=== PATIENT | male | born 1955 | race Caucasian/White ===

== ENCOUNTER 2017-12-16 02:29 | Outpatient (CLI) | payer MEDICARE, SELFPAY ==
[2017-12-16 15:02] LABS: Hemoglobin A1C 6.8 % (4.5-6.2)
== END 2017-12-16 02:49 ==
PROVIDERS: PCP Family Medicine; Visit Provider Family Medicine
DX: E11.9 Type 2 diabetes mellitus without complications (principal)
CPT/HCPCS: 36415; 83036

== ENCOUNTER 2018-03-29 01:49 | Outpatient (CLI) | payer MEDICARE, SELFPAY ==
[2018-03-29 08:27] LABS: Hemoglobin A1C 8.4 % (4.5-6.2)
[2018-03-29 09:21] LABS: ALT 33 U/L (12-78); AST 15 U/L (15-37); Albumin 3.9 g/dL (3.4-5.0); Alkaline Phosphatase 69 U/L (46-116); Anion Gap 10.7 mmol/L (3-11); BUN 17 mg/dL (7-18); Bilirubin, Total 0.5 mg/dL (0.2-1.0); CO2 29.3 mmol/L (21.0-32.0); CREATININE 1.01 mg/dL (0.70-1.30); Calcium 9.3 mg/dL (8.5-10.1); Chloride 99 mmol/L (98-107); Cholesterol 124 mg/dL (50-200); Glucose 249 mg/dL (70-100); HDL Cholesterol 37 mg/dL (40-60); LDL CHOLESTEROL 62 mg/dL (<100); Potassium 4.9 mmol/L (3.5-5.1); Sodium 139 mmol/L (136-145); Total Protein 7.4 g/dL (6.4-8.2); Triglyceride 195 mg/dL (30-150)
== END 2018-03-29 02:09 ==
PROVIDERS: PCP Family Medicine; Visit Provider Family Medicine
DX: E11.9 Type 2 diabetes mellitus without complications (principal)
CPT/HCPCS: 36415; 80053; 80061; 83721; 83036

== ENCOUNTER 2018-08-04 02:09 | Outpatient (CLI) | payer MEDICARE, SELFPAY ==
[2018-08-04 08:22] LABS: Hemoglobin A1C 7.8 % (4.5-6.2)
== END 2018-08-04 02:29 ==
PROVIDERS: PCP Family Medicine; Visit Provider Family Medicine
DX: E11.9 Type 2 diabetes mellitus without complications (principal)
CPT/HCPCS: 36415; 83036

== ENCOUNTER 2019-04-19 12:19 | Outpatient (CLI) | payer MEDICARE, SELFPAY ==
--- NOTE | 2019-04-19 | DI.RAD_ITS ---
EXAM: XR THORACIC SPINE COMPLETE INDICATION: upper back pain STRAIN OF RT TRAPEZIUS [id number] COMPARISON: LUMBAR SPINE COMPLETE from 08/10/2014 TECHNIQUE: 2D digital imaging was performed. FINDINGS: There is a stable moderate compression fracture of T 11. There is also stable mild compression of T1 2. Degenerative disc osteophytes are seen throughout, greatest at the lower thoracic levels. There is a mild scoliosis. Heart size is normal. Visualized portions of the lungs appear clear. IMPRESSION: Old lower thoracic compression fractures. Degenerative disc changes and mild scoliosis.
== END 2019-04-19 12:39 ==
PROVIDERS: PCP Family Medicine; Visit Provider Family Medicine
DX: M54.6 Pain in thoracic spine (principal); M51.34 Other intervertebral disc degeneration, thoracic region
CPT/HCPCS: 72072

== ENCOUNTER 2019-05-02 02:11 | Outpatient (CLI) | payer MEDICARE, SELFPAY ==
[2019-05-02 07:54] LABS: Hemoglobin A1C 8.8 % (3.8-5.6)
== END 2019-05-02 02:31 ==
PROVIDERS: PCP Family Medicine; Visit Provider Family Medicine
DX: E11.9 Type 2 diabetes mellitus without complications (principal)
CPT/HCPCS: 36415; 83036

== ENCOUNTER 2019-05-10 07:26 | Outpatient (CLI) | payer MEDICARE, SELFPAY ==
--- NOTE | 2019-05-10 | DI.RAD_ITS ---
EXAM: XR RIBS RT W PA LAT CHEST INDICATION: FELL 6 WKS AGO ON RT POSTERIOR RIBS, DORSALGIA, UPPER BACK PAIN, M54.9. COMPARISON: LUMBAR SPINE COMPLETE from 08/10/2014 TECHNIQUE: 2D digital imaging was performed. FINDINGS: The heart size and pulmonary vasculature are within normal limits. The lungs are clear. No pneumoth orax or pleural effusion is seen. No acute or healing fracture or dislocation is identified. There are degenerative changes in the spine. Note is again made of an ovoid calcification in the right abd omen. This is unchanged dating back to 08/10/2014. This may represent a gallstone. IMPRESSION: No acute or healing rib fracture. No acute pulmonary process.
== END 2019-05-10 07:46 ==
PROVIDERS: PCP Family Medicine; Visit Provider Family Medicine
DX: M54.9 Dorsalgia, unspecified (principal); R07.81 Pleurodynia
CPT/HCPCS: 71046; 71100

== ENCOUNTER 2019-08-25 03:03 | Outpatient (CLI) | payer MEDICARE, SELFPAY ==
[2019-08-25 09:30] LABS: ALT 30 U/L (16-63); AST 11 U/L (15-37); Albumin 3.8 g/dL (3.4-5.0); Alkaline Phosphatase 73 U/L (46-116); Anion Gap 7.4 mmol/L (3-11); BUN 14 mg/dL (7-18); Bilirubin, Total 0.3 mg/dL (0.2-1.0); CO2 27.6 mmol/L (21.0-32.0); CREATININE 0.97 mg/dL (0.70-1.30); Calcium 9.1 mg/dL (8.5-10.1); Calculated LDL 58 mg/dL (<100); Chloride 106 mmol/L (98-107); Cholesterol 125 mg/dL (<200); Glucose 277 mg/dL (74-106); HDL Cholesterol 36 mg/dL (40-60); Potassium 4.4 mmol/L (3.5-5.1); Sodium 141 mmol/L (136-145); Triglyceride 157 mg/dL (<150)
[2019-08-28 11:06] LABS: PSA, Diagnostic 0.3 ng/mL (0.0-4.5)
== END 2019-08-25 03:23 ==
PROVIDERS: PCP Family Medicine; Visit Provider Family Medicine
DX: E78.5 Hyperlipidemia, unspecified (principal); E11.9 Type 2 diabetes mellitus without complications; R35.1 Nocturia; N40.1 Benign prostatic hyperplasia with lower urinary tract symptoms
CPT/HCPCS: 36415; 80053; 80061; 83036; 84153

== ENCOUNTER 2020-05-07 03:19 | Outpatient (CLI) | payer MEDICARE, SELFPAY ==
[2020-05-07 07:55] LABS: Hemoglobin A1C 10.8 % (<5.7)
== END 2020-05-07 03:20 | disposition home or self-care (01) ==
LOC: LBO 03:19
PROVIDERS: PCP Family Medicine; Visit Provider Family Medicine
DX: E11.9 Type 2 diabetes mellitus without complications (principal)
CPT/HCPCS: 36415; 83036

== ENCOUNTER → 2020-05-21 02:02 | Outpatient (CLI) | payer MEDICARE, SELFPAY ==
--- NOTE | 2020-05-21 07:30 | DI.CTLCSR_ITS ---
EXAM: CT CHEST LUNG CANCER SCREEN CLINICAL HISTORY: Screening for lung cancer,FORMER SMOKER, Z87.891 TECHNIQUE: CT examination of the chest was performed utilizing low-dose lung cancer screening protoc ol. COMPARISON: No exams were available for comparison FINDINGS: Images obtained through the upper abdomen show unremarkable appearance of visualized portions of the liver and spleen. Visualized portions pancreas, adrenals, and kidneys appear intact. Note is made of coronary artery calcification. There is no mediastinal or hilar adenopathy. Mediastinal vascular structures appear intact by noncon trast criteria. Tracheobronchial tree appears intact. No pleural effusion or pleural-based mass. The lungs are clear with no significant intrapulmonary nodule identified. IMPRESSION: Negative LDCT of the chest. Lung RADS Cat 1 - Negative: No nodules and definitely benign nodules Continue annual screening with LDCTin 12 months. RADIATION DOSE DELIVERED: LINK-TO-SR Total DLP 72.02mGy.cm Total DLP
== END ==
PROVIDERS: PCP Family Medicine; Visit Provider Family Medicine
DX: Z87.891 Personal history of nicotine dependence (principal)
CPT/HCPCS: 71271

== ENCOUNTER 2020-08-09 03:17 | Outpatient (CLI) | payer MEDICARE, SELFPAY ==
[2020-08-09 12:05] LABS: Hemoglobin A1C 8.2 % (<5.7)
[2020-08-09 13:37] LABS: COMMENT (LAB VIEW ONLY) 93.61 mg/dL; Microalb ug/mg Crea 46.9 ug/mg Cr
[2020-08-12 10:22] LABS: PSA, Diagnostic 0.3 ng/mL (0.0-4.5)
== END 2020-08-09 03:18 | disposition home or self-care (01) ==
LOC: LBO 03:18
PROVIDERS: PCP Family Medicine; Visit Provider Family Medicine
DX: E11.9 Type 2 diabetes mellitus without complications (principal); N40.0 Benign prostatic hyperplasia without lower urinary tract symptoms
CPT/HCPCS: 36415; 82043; 82570; 83036; 84153

== ENCOUNTER 2021-01-22 01:39 | Outpatient (CLI) | payer MEDICARE, SELFPAY ==
[2021-01-22 13:24] LABS: Hemoglobin A1C 7.8 % (<5.7)
== END 2021-01-22 01:40 | disposition home or self-care (01) ==
LOC: LOS 01:40
PROVIDERS: PCP Family Medicine; Visit Provider Family Medicine
DX: E11.9 Type 2 diabetes mellitus without complications (principal)
CPT/HCPCS: 36415; 83036

== ENCOUNTER 2021-06-18 03:00 | Outpatient (CLI) | payer MEDICARE, SELFPAY ==
[2021-06-18 10:33] LABS: ALT 25 U/L (16-63); AST 12 U/L (15-37); Albumin 4.4 g/dL (3.4-5.0); Alkaline Phosphatase 83 U/L (46-116); Anion Gap 8.8 mmol/L (3-11); BUN 11 mg/dL (7-18); Bilirubin, Total 0.7 mg/dL (0.2-1.0); CO2 28.2 mmol/L (21.0-32.0); CREATININE 0.9 mg/dL (0.70-1.30); Calcium 9.2 mg/dL (8.5-10.1); Chloride 103 mmol/L (98-107); Glucose 157 mg/dL (74-106); Potassium 4.3 mmol/L (3.5-5.1); Sodium 140 mmol/L (136-145); Total Protein 7.7 g/dL (6.4-8.2)
[2021-06-19 14:56] LABS: Calculated LDL 66 mg/dL (<100); Cholesterol 129 mg/dL (<200); HDL Cholesterol 42 mg/dL (40-60); Triglyceride 107 mg/dL (<150)
== END 2021-06-18 03:01 | disposition home or self-care (01) ==
LOC: LBO 03:00
PROVIDERS: PCP Family Medicine; Visit Provider Family Medicine
DX: E11.9 Type 2 diabetes mellitus without complications (principal); E78.5 Hyperlipidemia, unspecified
CPT/HCPCS: 36415; 80053; 80061; 83036

== ENCOUNTER 2021-06-20 16:01 | Outpatient (CLI) | payer MEDICARE, SELFPAY ==
--- NOTE | 2021-06-20 16:00 | RT.EKG_ITS ---
APPROVED REPORT Exam: Resting ECG Reason for Exam: Welcome to Medicare Patient Location: O HR:62 bpm ECG Measurements Heart Rate 62 AXIS AL 156 P 83 QRSd 95 QRS -9 QT 404 T 57 QTc 396 Conclusion Sinus bradycardia...rate< 60 Atrial premature complexes...SV complexes w/ short R-R intvls
== END 2021-06-20 16:02 | disposition home or self-care (01) ==
LOC: DI.CM 16:02
PROVIDERS: PCP Family Medicine; Visit Provider Family Medicine
DX: Z00.00 Encounter for general adult medical examination without abnormal findings (principal); R00.1 Bradycardia, unspecified; I49.1 Atrial premature depolarization
CPT/HCPCS: 93010

== ENCOUNTER → 2021-07-21 01:03 | Outpatient (CLI) | payer MEDICARE, SELFPAY | PROVIDERS: PCP Family Medicine; Visit Provider Family Medicine ==

== ENCOUNTER 2021-12-01 03:43 | Outpatient (CLI) | payer MEDICARE, SELFPAY ==
[2021-12-01 12:30] LABS: Hemoglobin A1C 7.3 % (<5.7)
[2021-12-01 22:06] LABS: Albumin ug/mg Crea 21 (<30); Albumin, Ur 1.3 mg/dL (See Note); Creatinine, Ur 63.1 mg/dL (See Note)
== END 2021-12-01 03:44 | disposition home or self-care (01) ==
LOC: LOS 03:43
PROVIDERS: PCP Family Medicine; Visit Provider Family Medicine
DX: E11.9 Type 2 diabetes mellitus without complications (principal)
CPT/HCPCS: 82043; 82570; 83036

== ENCOUNTER 2022-04-17 01:04 | Outpatient (CLI) | payer MEDICARE, SELFPAY ==
[2022-04-17 12:30] LABS: Hemoglobin A1C 7.3 % (<5.7)
== END 2022-04-17 01:05 | disposition home or self-care (01) ==
LOC: LOS 01:04
PROVIDERS: PCP Family Medicine; Visit Provider Family Medicine
DX: E11.9 Type 2 diabetes mellitus without complications (principal)
CPT/HCPCS: 36415; 83036

== ENCOUNTER 2022-04-21 11:14 | Outpatient (REF) | payer MEDICARE, SELFPAY ==
[2022-04-21 14:13] LABS: COMMENT (LAB VIEW ONLY) 55.04 mg/dL; Microalb ug/mg Crea 1048.9 ug/mg Cr
== END 2022-04-21 11:15 | disposition home or self-care (01) ==
LOC: LBN 11:14
PROVIDERS: PCP Family Medicine; Visit Provider Family Medicine
DX: E11.9 Type 2 diabetes mellitus without complications (principal)
CPT/HCPCS: 82043; 82570

== ENCOUNTER 2022-07-22 01:58 | Outpatient (CLI) | payer OTHER, SELFPAY ==
--- NOTE | 2022-07-22 07:45 | DI.RAD_ITS ---
Exam(s) XR LUMBAR SPINE COMPLETE EXAM: XR LUMBAR SPINE COMPLETE CLINICAL HISTORY: low back pain m54.5. TECHNIQUE: 2D digital imaging was performed of the lumbar spine. Five images were obtained. AP, la teral, right oblique, left oblique and L5-S1 spot views were obtained. COMPARISON: CR LUMBAR SPINE COMPLETE from 08/10/[address] CHEST LUNG CANCER SCREEN from 05/21/2020 FINDINGS: BONES: No fracture or destructive lesion. There are endplate osteophytes throughout the lumbar spine. Degenerative changes of the facets are seen at L5-S1. DISKS: There is disc space narrowing at T12-L1 and L1-L2. ALIGNMENT: Lumbar spinal alignment is within normal limits. No spondylolysis or spondylolisthesis. SOFT TISSUE: There is again seen a rounded calcification in the right upper quadrant which may repres ent a gallstone. Atherosclerosis is present. IMPRESSION: Moderate degenerative changes in the lumbar spine. DATA REPOSITORY: RADIATION DOSE DELIVERED:
--- NOTE | 2022-07-22 07:45 | DI.RAD_ITS ---
Exam(s) XR HIP LT COMPLETE AP PELVIS EXAM: XR HIP LT COMPLETE AP PELVIS CLINICAL HISTORY: left hip/leg pain,m25.552. TECHNIQUE: 2D digital imaging was performed of the left hip. Two views were obtained. AP pelvis an d lateral left hip views were obtained. COMPARISON: No exams were available for comparison FINDINGS: BONES: No acute fracture is present. No bony destructive lesion is seen. JOINTS: No dislocation present. The hip joints are well maintained. The sacroiliac joints and symphy sis pubis are unremarkable. SOFT TISSUE: Normal. IMPRESSION: Unremarkable radiographs of the left hip. DATA REPOSITORY: RADIATION DOSE DELIVERED:
== END 2022-07-22 02:18 ==
LOC: DI 01:58
PROVIDERS: PCP Family Medicine; Visit Provider Family Medicine
DX: M25.552 Pain in left hip (principal); M54.50 Low back pain, unspecified
CPT/HCPCS: 72110; 73502

== ENCOUNTER 2022-08-31 13:08 | Emergency (ER) | payer OTHER, SELFPAY ==
--- NOTE | 2022-08-31 13:15 | DI.RAD_ITS ---
Exam(s) XR ANKLE LT COMPLETE EXAM: XR ANKLE LT COMPLETE CLINICAL HISTORY: Left ankle pain. TECHNIQUE: 2D digital imaging was performed. COMPARISON: No exams were available for comparison FINDINGS: Four views No evidence of acute fracture or widening of mortise. Talar dome unremarkable. Bone density normal. No osseous lesions. No osseous tarsal coalition. Tiny inferior calcaneal spur. IMPRESSION: No acute osseous findings in the ankle. DATA REPOSITORY: RADIATION DOSE DELIVERED:
--- NOTE | 2022-08-31 13:19 | ED.GENADUL_ITS ---
Discharge Plan Disposition Patient Disposition: Home Discharge Details Clinical Impression: Acute left ankle pain Primary Care Provider: Venice Melvin ED Provider: Maged Khan Home Meds and New Rx's Prescriptions: Continued multivitamin 1 EACH tablet 1 ea PO DAILY aspirin [Aspirin Low-Strength] 81 MG tablet,chewable 1 tab PO DAILY vitamin B complex 1 EACH tablet 1 ea PO DAILY xxtfklar-fbei-qjnbgr-hyalur ac 1 EACH capsule 1 ea PO DAILY omega 2-emj-rxi-fish oil 1 EACH capsule,delayed release(DR/EC) 2 ea PO DAILY naproxen sodium [Aleve] 220 MG tablet 2 - 3 tab PO DAILY PRN (DME) blood-glucose meter [OneTouch Verio Meter] 1 EACH misc Miscellaneous DAILY Qty: 90 Rx Instructions: Lancets - E11.9 (DME) blood-glucose meter [OneTouch Verio IQ Meter] 1 EACH kit 1 ea Miscellaneous DAILY Qty: 1 0RF Rx Instructions: E11.9 tramadol 50 mg tablet 50 mg PO BID PRN (Reason: pain) Qty: 14 3RF atenolol [Tenormin] 50 mg tablet 50 mg PO DAILY Qty: 90 4RF atorvastatin 40 mg tablet 40 mg PO QHS Qty: 90 4RF clonazepam 1 mg tablet 1 mg PO TID Qty: 90 5RF Jardiance 25 mg tablet 25 mg PO QAM Qty: 90 5RF glipizide 10 mg tablet extended release 24hr 10 mg PO BID Qty: 180 5RF lisinopril 10 mg tablet 10 mg PO DAILY Qty: 90 5RF metformin 1,000 mg tablet 1,000 mg PO BID Qty: 180 4RF (DME) OneTouch Verio test strips Strip 1 ea Miscellaneous DAILY Qty: 100 11RF Rx Instructions: E11.9 once daily (DME) lancets [OneTouch UltraSoft Lancets] Misc 1 ea Miscellaneous DAILY Qty: 100 11RF Rx Instructions: E11.9 One touch ultra No Action prednisone 20 mg tablet 40 mg PO DAILY 5 Days Qty: 10 0RF Rx Instructions: 2 tablets by mouth once a day for 5 days Discharge Instructions Additional Instructions: Please read all of the information that accompanies these instructions. You were seen in the emergency department for your ankle pain. Your x-ray showed no sign of any fractures. Please schedule an appointment with your primary care provider later this week. Please return to the emergency department if develop fevers ankle swelling or worsening ankle pain. Please also go to your appointment with orthopedics later this month. Please wear this ankle brace as needed for ankle support. For your pain please take medications as follows: 1. Take acetaminophen (Tylenol), 1,000 mg (two 500 mg tabs) every 6 hours Discharge Data Discharge Date/Time-TO BE ENTERED AT DEPARTURE: 08/31/22 14:29 Medical Decision Making This is an overall very well-appearing normothermic and not tachycardic 67-year-old male with indolent onset left ankle pain and reassuring exam. No pain out of proportion to suggest necrotizing soft tissue infection. No calf tenderness to suggest DVT. Patient has a warm and well perfused left lower extremity so I am not concerned for vascular insult. No significant ankle effusion nor history of gout so doubt gout. No history of tick bites nor significant swelling to suggest Lyme arthritis. Patient is neurologically intact so I am not concerned for CVA. Patient is diabetic but has no signs of diabetic foot ulcer. Will obtain plain films to assess for any acute osseous abnormality and discharge if negative with empiric trial of expectant outpatient management. Patient reportedly does have orthopedic follow-up later this month. If his symptoms do not improve following conservative management and orthopedics reassessment, patient may or may not benefit from an outpatient MRI but will defer this to his primary care team and orthopedics. Will offer patient ankle brace if plain films are negative. 2:20 PM Plain films read as no acute osseous abnormality of left ankle. I provided patient with an ankle brace. He has return indications. He will follow-up with PCP and orthopedics. HPI General Date/Time Provider Initiated Documentation: 08/31/22 13:19 . HPI Narrative: This is a 67-year-old srm-ndasrcn-kmfryzbew diabetic with indolent onset left ankle pain. He denies any specific injuries. He was sent by his PCP. He has not had x-rays reportedly performed on his left ankle. He attempted treatment at home last night with ibuprofen and acetaminophen. He denies routine tobacco, ethanol, and illicits. He denies history of gout. He denies falling on his ankle. He denies fevers chills nausea vomiting chest pain or shortness of breath. He denies being in the [place] and getting bit by any ticks. He denies any significant swelling of his left ankle. Related Data Home Medications Medication Instructions Recorded Confirmed aspirin 81 mg chewable tablet 1 tab PO DAILY 06/28/12 09/03/22 (Aspirin Low-Strength) glucosamin 375 mg-chond 300 1 ea PO DAILY 06/28/12 09/03/22 mg-collagen 50 mg-hyaluronic acid 2 mg cap multivitamin 1 ea PO DAILY 06/28/12 09/03/22 omega 2-lhu-nfl-fish oil 980 2 ea PO DAILY 06/28/12 09/03/22 mg-1,400mg capsule,delayed release vitamin B complex 1 ea PO DAILY 06/28/12 09/03/22 naproxen sodium 220 mg tablet 2 - 3 tab PO DAILY PRN 08/01/13 09/03/22 (Aleve) blood-glucose meter (OneTouch ##1 05/08/17 09/03/22 Verio IQ Meter) blood-glucose meter (OneTouch ##90 05/08/17 09/03/22 Verio Meter) atenolol 50 mg tablet (Tenormin) 50 mg PO DAILY #90 tab-caps 07/21/22 09/03/22 atorvastatin 40 mg tablet 40 mg PO QHS #90 tabs 07/21/22 09/03/22 blood sugar diagnostic (OneTouch #100 strips 07/21/22 09/03/22 Verio test strips) clonazepam 1 mg tablet 1 mg PO TID #90 tab-caps 07/21/22 09/03/22 empagliflozin 25 mg tablet 25 mg PO QAM #90 tabs 07/21/22 09/03/22 (Jardiance) glipizide 10 mg tablet, extended 10 mg PO BID #180 tabs 07/21/22 09/03/22 release 24 hr lancets (OneTouch UltraSoft #100 ea 07/21/22 09/03/22 Lancets) lisinopril 10 mg tablet 10 mg PO DAILY #90 tabs 07/21/22 09/03/22 metformin 1,000 mg tablet 1,000 mg PO BID #180 tab-caps 07/21/22 09/03/22 tramadol 50 mg tablet 50 mg PO BID PRN pain #14 tabs 07/21/22 09/03/22 prednisone 20 mg tablet 40 mg PO DAILY 5 days #10 tabs 09/03/22 09/03/22 Previous Rx's Medication Instructions Recorded blood-glucose meter (OneTouch ##1 05/08/17 Verio IQ Meter) atenolol 50 mg tablet (Tenormin) 50 mg PO DAILY #90 tab-caps 07/21/22 atorvastatin 40 mg tablet 40 mg PO QHS #90 tabs 07/21/22 blood sugar diagnostic (OneTouch #100 strips 07/21/22 Verio test strips) clonazepam 1 mg tablet 1 mg PO TID #90 tab-caps 07/21/22 empagliflozin 25 mg tablet 25 mg PO QAM #90 tabs 07/21/22 (Jardiance) glipizide 10 mg tablet, extended 10 mg PO BID #180 tabs 07/21/22 release 24 hr lancets (OneTouch UltraSoft #100 ea 07/21/22 Lancets) lisinopril 10 mg tablet 10 mg PO DAILY #90 tabs 07/21/22 metformin 1,000 mg tablet 1,000 mg PO BID #180 tab-caps 07/21/22 tramadol 50 mg tablet 50 mg PO BID PRN pain #14 tabs 07/21/22 prednisone 20 mg tablet 40 mg PO DAILY 5 days #10 tabs 09/03/22 Allergies Allergy/AdvReac Type Severity Reaction Status Date / Time No Known Allergies Allergy Verified 09/03/22 14:05 PFSH All Active Problems (Updated 08/31/22 @ 13:28 by Maged Khan MD) Acute left ankle pain (Acute) Low back pain (Acute) Left hip pain (Acute) Piriformis syndrome (Acute) Nicotine dependence (Acute) quit 2014, 35 pk yr hx 2020-chest CT screen, due May,-(ordered) 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 Fast heart rate. Family History (Updated 05/15/20 @ 08:43 by Molly Baker) Mother , AGE 89 Pancreatic cancer Ulcerative colitis Father , AGE 61 Diabetes Sister , AGE 60 Diabetes Dementia Brother , age 71 Diabetes FAMILY HISTORY Heart disease Social History (Updated 05/15/20 @ 08:42 by Molly Baker) Smoking/Tobacco Use Status: Former Tobacco Use tobacco type: cigarettes Quit Date: 03/22/14 Second Hand Exposure: Yes Smoking risk assessment performed?: Yes Alcohol Intake: former Drug use: Never Substance use type: does not use Household members: spouse Pets and animals: Yes Pets and animals: cat(s) Sexually active: No Do you think of yourself as: straight/heterosexual Current gender identity: male and decline to answer What is your relationship status?: How often do you talk on the phone with friends or family?: twice per week How often do you get together with friends or relatives?: decline to answer How often do you attend lutheran or cheondoism services?: decline to answer Do you belong to any clubs or organized social groups?: decline to answer Panel score (0-1 are the most socially isolated patients): 1 What type of physical activity do you participate in: decline to answer Duration: decline to answer Frequency: decline to answer Kierra/Alevism: Catholic Special kierra needs: No Seatbelt use: always Helmet use: No Drive 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 Head: Normocephalic, atraumatic. Eye: Extraocular eye movements intact. No conjunctival injection. No scleral icterus. Ear, nose, mouth, throat: Grossly normal inspection. Normal voice, handling secretions normally. Neck: Trachea midline. Cardiovascular: Well-perfused distal extremities. Respiratory: Nonlabored respiration. Gastrointestinal: Nondistended abdomen. Musculoskeletal: Left lower extremity with no obvious deformities lacerations or contusion. Left ankle, medial malleolus has tenderness. No significant joint effusion. 2+ PT and DP pulses. Cap refill less than 2 seconds in the left toes. Patient has intact sensation in the dorsal webspace between his great and second toes on the left. 5 out of 5 dorsi and plantarflexion strength. No signs of diabetic foot ulcers. Skin: Normal for age and race, grossly normal temperature and turgor. No acute rash. Neurologic: Alert and appropriate, no apparent acute deficits. Psychiatric: Mood and manner are appropriate. Grooming and personal hygiene are appropriate.
[2022-08-31 13:20] VITALS: BP 113/60; PULSE 69; RESP 15; TEMP 37; O2SAT 93
[2022-08-31] MEDS: Acetaminophen 500 MG TAB 1000 MG PO (13:56)
== END 2022-08-31 14:29 | disposition home or self-care (01) ==
PROVIDERS: Emergency Provider Emergency Medicine; PCP Family Medicine
DX: M25.572 Pain in left ankle and joints of left foot (principal); I10 Essential (primary) hypertension; E11.9 Type 2 diabetes mellitus without complications; Z79.82 Long term (current) use of aspirin; Z79.84 Long term (current) use of oral hypoglycemic drugs; Z79.899 Other long term (current) drug therapy
CPT/HCPCS: 99283; 73610

== ENCOUNTER 2022-10-08 10:54 | Outpatient (CLI) | payer OTHER, SELFPAY ==
--- NOTE | 2022-10-08 10:00 | DI.RAD_ITS ---
Exam(s) XR ANKLE LT COMPLETE EXAM: XR ANKLE LT COMPLETE CLINICAL HISTORY: left ankle pain TECHNIQUE: 2D digital imaging was performed of the left ankle. Three images were obtained. AP, lat eral and oblique views were obtained. COMPARISON: CR XR ANKLE LT COMPLETE from 08/31/2022 FINDINGS: BONES: No acute fracture is present. No bony destructive lesion is seen. There is a small plantar tez caneal spur. There is a small enthesophyte at the posterior calcaneus. JOINTS:The ankle mortise is normally aligned. SOFT TISSUE: Normal. IMPRESSION: No acute abnormality. DATA REPOSITORY: RADIATION DOSE DELIVERED:
== END 2022-10-08 10:55 | disposition home or self-care (01) ==
LOC: DIORS 10:54
PROVIDERS: PCP Family Medicine; Referring Provider Family Medicine; Visit Provider Physician Assistant
DX: M19.072 Primary osteoarthritis, left ankle and foot; S76.112A Strain of left quadriceps muscle, fascia and tendon, initial encounter; X58.XXXA Exposure to other specified factors, initial encounter
CPT/HCPCS: 99213; 73610

== ENCOUNTER 2022-11-03 03:16 | Outpatient (CLI) | payer OTHER, SELFPAY ==
[2022-11-03 13:40] LABS: Hemoglobin A1C 7.9 % (<5.7)
== END 2022-11-03 03:17 | disposition home or self-care (01) ==
LOC: LOS 03:16
PROVIDERS: PCP Family Medicine; Visit Provider Family Medicine
DX: E11.9 Type 2 diabetes mellitus without complications (principal)
CPT/HCPCS: 36415; 83036

== ENCOUNTER → 2022-12-02 09:35 | Outpatient (BNVA) | payer OTHER, SELFPAY | PROVIDERS: PCP Family Medicine; Referring Provider Family Medicine; Visit Provider Student in an Organized Health Care Education/Training Program | DX: M54.32 Sciatica, left side (principal) | CPT/HCPCS: 99213 ==

== ENCOUNTER → 2022-12-10 03:09 | Outpatient (CLI) | payer OTHER, SELFPAY ==
--- NOTE | 2022-12-10 07:15 | DI.MRI_ITS ---
Exam(s) MR LUMBAR SPINE WO EXAM: MR LUMBAR SPINE WO CLINICAL HISTORY: Failed conservative care; LBP and left leg pain,m54.5,m54.32,lt sciatica. TECHNIQUE: Multiplanar multisequence MRI of the Lumbar spine was performed. COMPARISON: CR XR LUMBAR SPINE COMPLETE from 07/22/2022 FINDINGS: Bones: The last intervertebral disc space is designated the L5/S1 level for the numbering purpose of this examination. There is an old T11 compression fracture deformity. Alignment is satisfactory. T he signal characteristics are unremarkable. Cord: The conus tip ends at the L1 level. It is of normal size and signal intensity. T12-L1: No disc herniations or bulges are present. No central spinal canal or neural foraminal stenos is. L1-2: No disc herniations or bulges are present. No central spinal canal or neural foraminal stenosis . L2-3: No disc herniations or bulges are present. No central spinal canal or neural foraminal stenosis . L3-4: No disc herniations or bulges are present. No central spinal canal or neural foraminal stenosis . L4-5: There is a mild diffuse disc bulge. No central spinal canal or neural foraminal stenosis.There are degenerative changes of the facets. L5-S1: No disc herniations or bulges are present. No central spinal canal or neural foraminal stenosi s.There are mild degenerative changes of the facets. Soft tissues: The visualized SI joints and sacrum are well maintained. The paraspinal soft tissues ar e unremarkable. IMPRESSION: 1. Mild degenerative changes seen in the lumbar spine as described above. 2. No significant central spinal canal or neural foraminal stenosis is seen in the lumbar spine. 3. Old T11 compression fracture deformity. DATA REPOSITORY:
== END ==
PROVIDERS: PCP Family Medicine; Visit Provider Family Medicine
DX: M51.37 Other intervertebral disc degeneration, lumbosacral region (principal)
CPT/HCPCS: 72148

== ENCOUNTER 2023-02-26 03:09 | Outpatient (CLI) | payer OTHER, SELFPAY ==
[2023-02-26 11:52] LABS: Hemoglobin A1C 6.7 % (<5.7)
== END 2023-02-26 03:10 | disposition home or self-care (01) ==
LOC: LBO 03:09
PROVIDERS: PCP Family Medicine; Visit Provider Family Medicine
DX: E11.9 Type 2 diabetes mellitus without complications (principal)
CPT/HCPCS: 36415; 83036

== ENCOUNTER 2023-05-10 18:46 | Outpatient (REF) | payer OTHER, SELFPAY ==
[2023-05-10 22:05] LABS: Microalb ug/mg Crea 429.5 ug/mg Cr
== END 2023-05-10 18:47 | disposition home or self-care (01) ==
LOC: LBN 18:46
PROVIDERS: PCP Family Medicine; Referring Provider Family Medicine; Visit Provider Family Medicine
DX: E11.9 Type 2 diabetes mellitus without complications (principal)
CPT/HCPCS: 82043; 82570

== ENCOUNTER → 2023-05-13 00:36 | Outpatient (CLI) | payer OTHER, SELFPAY ==
--- NOTE | 2023-05-13 06:15 | DI.CTLCSR_ITS ---
Exam(s) CT CHEST LUNG CANCER SCREEN EXAM: CT CHEST LUNG CANCER SCREEN CLINICAL HISTORY: Screening for lung cancer,FORMER SMOKER, Z87.891 TECHNIQUE: Imaging Protocol: Axial computed tomography images with coronal and sagittal reformatted images were created and reviewed COMPARISON: CT CT CHEST LUNG CANCER SCREEN from 05/21/2020 FINDINGS: Tracheobronchial tree: Patent where visualized. Pulmonary parenchyma: No consolidation or dominant measurable mass. No architectural distortion. Lung Nodules: None. Mediastinum and Tamika: No dominant adenopathy or fluid collection. The esophagus is unremarkable. Thyroid gland: Unremarkable. Lymph nodes: Unremarkable. Pleura: No effusion or pneumothorax. Heart: The heart is not dilated. Coronary artery calcifications and/or stents are present. No perica rdial effusion. Aorta: Thoracic aorta non-dilated.Atherosclerotic calcification is present. Upper abdomen: Unremarkable. Soft Tissues: Unremarkable. Bones: Within normal limits. Old compression deformities are seen in the thoracic spine, particularly at T11. IMPRESSION: No pulmonary nodules. Lung RADS Cat 1 - Negative: No nodules and definitely benign nodules Lung-RADS 1.0 CATEGORIES: Category 0 - Prior chest CT exam(s) being located for comparison. Category 1 - Annual screening in 12 months. No nodules or definitely benign nodules. Category 2 - Annual screening in 12 months. Benign appearance. Nodules with low likelihood of becomin g active cancer. Category 3 - 6-month follow-up. Probably benign. Short-term follow-up suggested. Nodules with low lik elihood of becoming active cancer. Category 4A - 3-month follow-up and CT/PET if >8 mm in size. Suspicious finding. Findings which requi re additional testing. Category 4B - Findings which require additional testing and tissue sampling. Suspicious finding. Category 4X - Category 3 or 4 nodules with additional features or imaging findings that increases the suspicion of malignancy. Modifier S- Potentially clinically significant finding. (Non lung cancer) RADIATION DOSE DELIVERED: 75.61mGy.cm Total DLP 75.61mGy.cm Total DLP 75.61mGy.cm Total DLP 75.61mGy.cmTotal DLP DATA REPOSITORY: All CT scans at this facility are submitted to the National Radiology Data Registry (NRDR) Dose Index Registry (DIR) with the [employer] ([employer]). RADIATION OPTIMIZATION: All CT scans at this facility use at least one of these dose optimization te chniques: automated exposure control; mA and/or kV adjustment per patient size (includes targeted exa ms where dose is matched to clinical indication); or iterative reconstruction.
--- NOTE | 2023-05-13 06:15 | DI.US_ITS ---
Exam(s) US ABDOMEN EXAM: US ABDOMEN CLINICAL HISTORY: LUQ pain,R10.12 TECHNIQUE: Ultrasound abdomen performed using standard protocol. COMPARISON: CT CT CHEST LUNG CANCER SCREEN from 05/13/2023 FINDINGS: ABDOMINAL AORTA AND IVC: Visualized portions normal caliber. PANCREAS: Normal where visualized. LIVER: Normal. Hepatopedal flow in the Portal Vein. The liver measures 20.4 cm long. GALLBLADDER:There is a 2.8 cm gallstone present. There is gallbladder wall thickening. No perichole cystic fluid identified. Note is also made of at least 2 isoechoic nodules which are immobile along t he wall of the gallbladder and likely reflect small polyps. BILIARY SYSTEM: Common bile duct measures < 7 mm. No intrahepatic biliary ductal dilation. PETER'S SIGN: Negative. KIDNEYS: Kidneys are symmetric in size. No evidence of renal calculi. No evidence of hydronephrosis. No renal mass or cyst identified. SPLEEN: Not enlarged. ASCITES: None seen. IMPRESSION: 1. Cholelithiasis. There is a negative sonographic Peter sign. There is no biliary ductal dilatati on. 2. Gallbladder polyps. 3. Enlarged liver. DATA REPOSITORY:
== END ==
PROVIDERS: PCP Family Medicine; Visit Provider Family Medicine
DX: Z87.891 Personal history of nicotine dependence (principal); K80.80 Other cholelithiasis without obstruction; Z12.2 Encounter for screening for malignant neoplasm of respiratory organs
CPT/HCPCS: 71271; 76700

== ENCOUNTER → 2023-05-17 08:54 | Outpatient (BNVA) | payer OTHER, SELFPAY | PROVIDERS: PCP Family Medicine; Referring Provider Family Medicine; Visit Provider Surgery | DX: K80.20 Calculus of gallbladder without cholecystitis without obstruction (principal); R10.32 Left lower quadrant pain; R19.7 Diarrhea, unspecified; E11.65 Type 2 diabetes mellitus with hyperglycemia | CPT/HCPCS: 99214 ==

== ENCOUNTER 2023-05-17 12:18 | Outpatient (CLI) | payer OTHER, SELFPAY ==
[2023-05-17 11:38] LABS: Abs Immature Grans 0.04 10^3/uL (0.0-0.06); Absolute Basophil Count 0.06 10^3/uL (0.0-0.2); Absolute Eosinophil Count 0.16 10^3/uL (0.0-0.7); Absolute Lymphocyte Count 2.06 10^3/uL (1.2-3.4); Absolute Monocyte Count 0.84 10^3/uL (0.1-0.8); Basophils % 0.6; Eosinophils % 1.7; HCT 48.1 % (40.0-50.0); HGB 16.2 g/dL (13.5-17.5); Immature Grans % 0.4; Lymphocytes % 21.5; MCH 30.4 pg (27.0-33.0); MCHC 33.7 % (32.0-36.0); MCV 90 fL (80-95); MPV 10.9 fL (8.0-11.0); Monocytes % 8.8; Platelet Count 214 10^3/uL (130-400); RBC 5.33 10^6/uL (4.36-5.78); RDW 13.2 % (11.8-14.1); RDW-SD 43.6 fL; WBC 9.56 10^3/uL (4.4-10.8)
[2023-05-17 11:50] LABS: Hemoglobin A1C 7.9 % (<5.7)
[2023-05-17 12:09] LABS: ALT 27 U/L (16-63); AST 12 U/L (15-37); Albumin 3.9 g/dL (3.4-5.0); Alkaline Phosphatase 87 U/L (46-116); Anion Gap 8.2 mmol/L (3-11); BUN 12 mg/dL (7-18); Bilirubin, Total 0.5 mg/dL (0.2-1.0); CO2 31.8 mmol/L (21.0-32.0); CREATININE 0.9 mg/dL (0.70-1.30); Calcium 9.5 mg/dL (8.5-10.1); Chloride 102 mmol/L (98-107); Estimated GFR 93.61 (mL/min/1.73m2); Glucose 220 mg/dL (74-106); Sodium 142 mmol/L (136-145); Total Protein 7.5 g/dL (6.4-8.2)
[2023-05-17 12:11] LABS: Calculated LDL 36 mg/dL (<100); Cholesterol 111 mg/dL (<200); HDL Cholesterol 44 mg/dL (40-60); Triglyceride 157 mg/dL (<150)
[2023-05-17 12:29] LABS: C-Reactive Protein < 0.50 mg/dL (<or=0.5)
[2023-05-17 17:55] LABS: PSA, Diagnostic 0.3 ng/mL (<=4.5)
== END 2023-05-17 12:19 | disposition home or self-care (01) ==
PROVIDERS: PCP Family Medicine; Visit Provider Surgery
DX: N40.0 Benign prostatic hyperplasia without lower urinary tract symptoms; I10 Essential (primary) hypertension; E11.21 Type 2 diabetes mellitus with diabetic nephropathy; I70.0 Atherosclerosis of aorta; E78.5 Hyperlipidemia, unspecified; E11.3299 Type 2 diabetes mellitus with mild nonproliferative diabetic retinopathy without macular edema, unspecified eye; K80.20 Calculus of gallbladder without cholecystitis without obstruction; F17.210 Nicotine dependence, cigarettes, uncomplicated
CPT/HCPCS: 36415; 80053; 80061; 83036; 84153; 85025; 86140

== ENCOUNTER 2023-06-01 06:14 | Day surgery (SDC) | payer OTHER, SELFPAY ==
--- NOTE | 2023-05-31 12:05 | ROE_ITS ---
Date of service: 06/01/23 Time of Service: 09:12 Operative Note Operative Note DATE OF PROCEDURE: 06/01/23 PRE-OP DIAGNOSIS: symptomatic gallstones/DM POST-OP DIAGNOSIS: same PROCEDURE: Laparoscopic cholecystectomy SURGEON: Anayeli Negron [employer] APPRENTICE: Kaylee Chavira ANESTHESIA TYPE: Local By Surgeon and General LMA/ETT Refer to Anesthesia Record ESTIMATED BLOOD LOSS: 10 PATHOLOGY: other COMPLICATIONS: None Patient was transported to: same day Patient's condition: stable Procedure Description: The pt has failed outpt conservative medical measures and is here today for laparoscopic cholecystectomy. Informed consent was obtained, explaining risks and benefits of the procedure including but not limited to bleeding, infection, pneumonia, blood clots, possible damage to bowel, bladder, blood vessels, bile ducts, possible open procedure, complications of general anesthesia and other unforetold complications. PROCEDURE: The patient agrees and is brought to the operative room suite and placed in supine position. Pt receives IV ICG preOp to aid w/ bile duct visualization.? Anesthesia was administered per the Department of Anesthesia. The patient did receive IV antibiotics. NG tube and Melgar catheter are placed. The patient was prepped and draped in the usual sterile fashion using ChloraPrep scrub soluti on. Pause for the cause was done. 20 mL of 1% buffered lidocaine was used for local anesthetization. A stab incision was made in the umbilicus and the Verres inserted. Drop test was positive and insufflation was begun. When 15 mm of pressure was noted on the monitor, the Veress was removed and #5 port inserted. The camera was inserted through the port and shows no damage to underlying structures. A 10 mm port was then placed in the epigastric position under direct visualization following creation of local field blocks as well as two 5 mm ports in the right upper quadrant. The camera was moved to one of the secondary ports so we could view the umbilical trocar site, and there is are no hernias or adhesions. The gallbladder fundus was grasped and retracted towards the right shoulder. Infundibulum was grasped and retracted laterally. The hepat-duodenal ligament is entered. The cystic duct and artery are dissected out and the most inferior portion of the gallbladder plate is removed from the liver and the critical view of safety was obtained after clearing away all fatty material. Endo Clips were placed across the duct and artery and these structures are divided. The remainder of the gallbladder was excised from the liver bed. The gallbladder was placed in a bag and brought out. Examination of the gallbladder shows indeed the cystic duct and artery to have been divided. The remainder of the abdomen was copiously irrigated with a liter of saline. All saline is removed. There is a small amount of bleeding from the liver bed. Floseal was placed in the liver bed and this is easily controlled. There is no bleeding or bile leakage from the liver bed or the clips sites. All ports and instruments are removed. SPonge and needle counts are correct. Pneumoperitoneum is evacuated and the port sites are monitored to make sure there is no bleeding at the time of desufflation. The fascia under the 10 mm port site is closed with 0 Vicryl. Port sites are irrigated and the skin is closed with 4-0 Monocryl in a running subcuticular fashion. Skin glue sterile dressings are applied. The patient tolerated the procedure well without complications, transferred to the recovery room in stable condition. ANAYELI NEGRON, DO
--- NOTE | 2023-05-31 12:08 | W.PM.DSUDISC ---
Date of service: 06/01/23 Time of Service: 09:16 Discharge Plan Disposition Patient Disposition: Home Discharge Details Attending Provider: Anayeli Gan Primary Care Provider: Venice Melvin Home Meds and New Rx's Prescriptions: No Action atenolol 25 mg tablet 25 mg PO DAILY Qty: 90 4RF tramadol 50 mg tablet 50 mg PO Q4H PRN PRN (Reason: pain) Qty: 10 0RF ondansetron HCl 4 mg tablet 4 mg PO Q6H PRN (Reason: nausea and vomiting) Qty: 10 0RF ibuprofen 200 mg tablet 800 mg PO Q6H PRN multivitamin 1 EACH tablet 1 ea PO DAILY aspirin [Aspirin Low-Strength] 81 MG tablet,chewable 1 tab PO DAILY vitamin B complex 1 EACH tablet 1 ea PO DAILY ertfkwlx-deue-rnqzzg-hyalur ac 1 EACH capsule 1 ea PO DAILY omega 3-mmf-xwx-fish oil 1 EACH capsule,delayed release(DR/EC) 2 ea PO DAILY naproxen sodium [Aleve] 220 MG tablet 2 - 3 tab PO DAILY PRN (DME) blood-glucose meter [OneTouch Verio Meter] 1 EACH misc Miscellaneous DAILY Qty: 90 Rx Instructions: Lancets - E11.9 (DME) blood-glucose meter [OneTouch Verio IQ Meter] 1 EACH kit 1 ea Miscellaneous DAILY Qty: 1 0RF Rx Instructions: E11.9 tramadol 50 mg tablet 50 mg PO BID PRN (Reason: pain) Qty: 14 3RF atorvastatin 40 mg tablet 40 mg PO QHS Qty: 90 4RF Jardiance 25 mg tablet 25 mg PO QAM Qty: 90 5RF glipizide 10 mg tablet extended release 24hr 10 mg PO BID Qty: 180 5RF lisinopril 10 mg tablet 10 mg PO DAILY Qty: 90 5RF metformin 1,000 mg tablet 1,000 mg PO BID Qty: 180 4RF (DME) OneTouch Verio test strips Strip 1 ea Miscellaneous DAILY Qty: 100 11RF Rx Instructions: E11.9 once daily (DME) lancets [OneTouch UltraSoft Lancets] Misc 1 ea Miscellaneous DAILY Qty: 100 11RF Rx Instructions: E11.9 One touch ultra clonazepam 1 mg tablet 1 mg PO TID Qty: 90 5RF Discharge Instructions Additional Instructions: Care after Gallbladder Surgery -Pain control: ?For the first 72 hours after surgery, take you pain meds continuously and not just when you have pain.?? Alternate Tylenol 1000mg by mouth every 8 hours, and Ibuprofen 600mg every 6 hours.? Make sure you take ibuprofen with food and not on an empty stomach.? ??Use the tramadol for breakthrough pain- pain that is greater than a 7. ?- Use ICE! Ice really helps to keep the swelling down, and swelling causes pain. ??Twenty minutes on, and then off, continuously for the first 72hours.? After the first 72hrs, you can just use the Tylenol, ibuprofen, and ice, when you have pain.?? If you are taking narcotic pain medication, follow the instructions on the label and do not drive. Pain medications can make you very constipated. Make sure you are moving your bowels daily. If not, take Miralax, - Anesthesia makes you very constipated.? Take a dose of milk of magnesia the morning after surgery. ? Use an ice bag for the first 72 hours. This helps to decrease swelling, which causes pain. It is normal to be more sore/painful and swollen towards the end of the day and first thing in the morning. ? Gallbladder surgery can make you very nauseated; use Zofran for nausea, for the first 24 hours. The nausea generally stops after 24 hours. ? Use Miralax ?to prevent constipation (this is a particular side effect of pain medication and anesthesia). Do not allow yourself to become constipated. ? Avoid fatty or greasy foods; introduce these slowly, with care, after about 1 month. High-fat foods include: ? Foods that are fried, like Romanian fries and potato chips ? High-fat meats, such as cisneros, bologna, sausage, ground beef, and ribs, pork products ? High-fat dairy products, such as cheese, ice cream, cream, whole milk, and sour cream ? Pizza ? Foods made with lard or butter ? Creamy soups or sauces ? Meat gravies ? Chocolate ? Oils, such as palm and coconut oil ? Skin of chicken or turkey ? Nuts and nut butters ? Avocadoes ? Start out eating very small, bland amounts of food. Do not take pain pills on an empty stomach. - You will notice purple discoloration around the incisions.? This is the ?skin glue?.? This will wear off on its own.? It is OK to shower after 24hrs.? You do not need to cover the incisions. -You should walk frequently, gradually, increasing the distance. You may climb stairs, just go slowly. ? Do not go swimming or sit in a hot tub for two weeks. ? There are no stitches to remove. ? Do not drive your car x72hrs and then only if you have no pain and can move freely. Do not drive if you are taking pain narcotic pain medications. ? You may resume sexual activity whenever pain and soreness subside, usually in 2 weeks. ? Do no lift anything over 5 lbs. for two weeks. ? You may return to work in one week, or when you feel able, provided you do not have to do any heavy lifting or prolonged standing. ? You should return to Dr. Gan?s office for a post-op appointment about two weeks after surgery. A follow-up should have been scheduled for you already.? If there is not, please call the Surgical [facility] at: [phone] to schedule an appointment. My Medications for pain and nausea are: Tylenol/ibuprofen ?and ultram- for severe pain ?and Zofran-nausea When to Call the Office: ? If the incision becomes red or swollen, or there is more than a little drainage from it. ? If you develop a temperature higher than 100.5 F. ? If your eyes turn yellow ? Vomiting and can?t keep fluids down Activity:: see above Remove Dressings/Wound Care:: 24 hours Shower/Bathe:: 24 hours Diet:: see above Discharge Orders Discharge Orders: Discharge Order (Routine); Ordered 06/01/23 Ordered By: Anayeli Gan DS: Diagnosis Discharge Diagnosis (1) Cholelithiases: Status: Acute Asessment and Plan: The patient is doing well post-op from their lap kathryn surgery.? They are having no nausea or vomiting. They are tolerating liquids and a snack. The pt is not having any chest pain or SOB.? Their pain is adequately controlled. They have been able to urinate.? ?HEENT:? no eye pain/drainage/redness/swelling. Mild sore throat ?Cardio- NSR, no chest pain, BP stable- see VS record ?Pulm: no sob or productive cough. No hemoptysis ?Incision- dressing is c/d/i w/ no excessive bleeding or drainage ?I discussed with the patient the findings at the time of surgery and the patient?s progress. ?We reviewed expectations at home; what the patient could expect for recovery time, and in the post-operative period.? We discussed the importance of walking to avoid blood clots and pneumonia.? We discussed and reviewed the patient's post-operative wound care and dressing needs.?? We reviewed their step-giraldo pain management plan, Rx called to the pharmacy of their choice.? We reviewed activity and limitations-see discharge instructions. We reviewed warning signs, and when to seek medical attention- see d/c instructions.?? Patient was given a postoperative follow-up appointment. Patient verbalized understanding of their postoperative instructions, how do to take care of themselves and their incision, and the pain management plan. Please see discharge instructions.? (2) Anxiety: Status: Chronic (3) Essential hypertension: Status: Chronic (4) Coronary artery calcification seen on CAT scan: Status: Acute (5) Atherosclerosis of aorta: Status: Acute (6) Hyperlipidemia: Status: Acute (7) Type 2 diabetes mellitus with diabetic nephropathy: Status: Acute (8) Mild nonproliferative diabetic retinopathy: Status: Chronic (9) Compression fracture of body of thoracic vertebra: Status: Acute (10) Smoker:
[2023-06-01] VITALS (8 sets, daily range): BP systolic 93–117; BP diastolic 43–74; PULSE 63–68; RESP 15–20; TEMP 36.5–36.6; O2SAT 95–99; BMI 29.0
[2023-06-01] MEDS: Acetaminophen 500 MG TAB 1000 MG PO (06:39)
[2023-06-01] MEDS: Gabapentin 300 MG CAP 600 MG PO (06:39)
[2023-06-01] MEDS: Indocyanine green 25 MG VIAL 5 MG IVP (06:40)
[2023-06-01] MEDS: Lactated Ringers 1,000 ML 80 ML IV (06:40)
--- NOTE | 2023-06-01 06:53 | ANES.PREOP_ITS ---
General Info Date of Service Date Performed: 06/01/23 Height: 5 ft 5.5 in Weight: 80.2 kg Body Mass Index (BMI): 29.0 Surgical Procedure: Operation Date: 06/01/23 07:40 Proposed Procedure Side Surgeon p Cholecystectomy Laparoscopic Anayeli Gan, DO Meds Allergies and Home Medications Allergies Allergy/AdvReac Type Severity Reaction Status Date / Time No Known Allergies Allergy Verified 06/01/23 06:22 Home Medication Medication Instructions Recorded aspirin 81 mg chewable tablet 1 tab PO DAILY 06/28/12 (Aspirin Low-Strength) glucosamin 375 mg-chond 300 1 ea PO DAILY 06/28/12 mg-collagen 50 mg-hyaluronic acid 2 mg cap multivitamin 1 ea PO DAILY 06/28/12 omega 0-nkn-kit-fish oil 980 2 ea PO DAILY 06/28/12 mg-1,400mg capsule,delayed release vitamin B complex 1 ea PO DAILY 06/28/12 naproxen sodium 220 mg tablet 2 - 3 tab PO DAILY PRN 08/01/13 (Aleve) blood-glucose meter (OneTouch ##1 05/08/17 Verio IQ Meter) blood-glucose meter (OneTouch ##90 05/08/17 Verio Meter) atorvastatin 40 mg tablet 40 mg PO QHS #90 tabs 07/21/22 blood sugar diagnostic (OneTouch #100 strips 07/21/22 Verio test strips) empagliflozin 25 mg tablet 25 mg PO QAM #90 tabs 07/21/22 (Jardiance) glipizide 10 mg tablet, extended 10 mg PO BID #180 tabs 07/21/22 release 24 hr lancets (OneTouch UltraSoft #100 ea 07/21/22 Lancets) lisinopril 10 mg tablet 10 mg PO DAILY #90 tabs 07/21/22 metformin 1,000 mg tablet 1,000 mg PO BID #180 tab-caps 07/21/22 tramadol 50 mg tablet 50 mg PO BID PRN pain #14 tabs 07/21/22 atenolol 25 mg tablet 25 mg PO DAILY #90 tab-caps 11/10/22 clonazepam 1 mg tablet 1 mg PO TID #90 tab-caps 02/08/23 ibuprofen 200 mg tablet 800 mg PO Q6H PRN 05/17/23 ondansetron HCl 4 mg tablet 4 mg PO Q6H PRN nausea and 05/31/23 vomiting #10 tabs tramadol 50 mg tablet 50 mg PO Q4H PRN PRN pain #10 tabs 05/31/23 Current Visit Medications: Current Medications Generic Name Dose Route Start Last Admin Trade Name Stan PRN Reason Stop Dose Admin Acetaminophen 1,000 mg 06/01/23 06:00 06/01/23 06:39 Acetaminophen 500 Mg Tab PO 06/01/23 23:59 1,000 mg PREOP SAVANNAH Administration Gabapentin 600 mg 06/01/23 06:00 06/01/23 06:39 Gabapentin 300 Mg Cap PO 06/01/23 23:59 600 mg PREOP SAVANNAH Administration Ondansetron HCl 4 mg/ Sodium 52 mls @ 200 mls/hr 06/01/23 00:03 Chloride IVPB 07/01/23 00:02 Q6H PRN PRN Ringer's Solution 1,000 mls @ 80 mls/hr 06/01/23 06:00 06/01/23 06:40 IV 06/01/23 23:59 80 mls/hr INFUSION SAVANNAH Administration Cefazolin Sodium/Dextrose 2 gm in 50 mls @ 100 mls/hr 06/01/23 06:00 Ancef Duplex IVPB 06/01/23 23:59 PREOP SAVANNAH IV Miscellaneous Supplies 1 each 06/01/23 06:00 Iv Access IV 06/01/23 23:59 DIRECTED SAVANNAH Indocyanine Green 5 mg 06/01/23 06:00 06/01/23 06:40 Indocyanine Green 25 Mg Vial IVP 06/01/23 23:59 5 mg DIRECTED SAVANNAH Administration Morphine Sulfate 2 mg 06/01/23 00:03 Morphine 4 Mg/Ml Syr IVP 07/01/23 00:02 Q1H PRN PRN Sodium Chloride 0 ml 06/01/23 06:00 Normal Saline Flush 10 Ml Syr IV 06/01/23 23:59 PRN PRN Sodium Chloride 0 ml 06/01/23 06:00 Normal Saline 10 Ml Vial IJ 06/01/23 23:59 DIRECTED PRN Sterile Water 0 ml 06/01/23 06:00 Water,Injection,Sterile 10 Ml Vial IJ 06/01/23 23:59 DIRECTED PRN Tramadol HCl 50 mg 06/01/23 00:03 Tramadol 50 Mg Tab PO 07/01/23 00:02 Q6H PRN PRN Pain PFSH Active Problems Active Problems: Problem Status Onset Code Coronary artery calcification seen on CAT scan I25.10 Atherosclerosis of aorta I70.0 Compression fracture of body of thoracic vertebra S22.000A Cholelithiases K80.20 LUQ abdominal pain R10.12 Type 2 diabetes mellitus with diabetic nephropathy E11.21 Hyperlipidemia E78.5 Mild nonproliferative diabetic retinopathy E11.3299 Essential hypertension I10 Anxiety F41.9 Medical History Medical History Left sided sciatica Osteoarthritis of left ankle Left hip pain Piriformis syndrome Nicotine dependence quit 2014, 35 pk yr hx 2020-chest CT screen, due May,-(ordered) BPV (benign positional vertigo) Cardiac arrhythmia Takes atenolol for rapid HR Smoker quit a year ago. Fast heart rate. Acute intractable headache 11/19/15 unspecified type Memory change (04/20/17) 2017-[facility] 05/2021-MMSE29/30, no symptoms per patient, active-independent Male erectile disorder Cardiac arrhythmia (12/23/09) Tobacco Smoking/Tobacco Use Status: Former Tobacco Use Passive smoking exposure: Yes Second hand exposure: Yes Alcohol Alcohol Intake: former Substance Use Substance use: Never Substance use type: does not use Vital Signs and Lab Results Vital Signs Most Recent Vital Signs in EMR: Most Recent Vital Signs Temp Pulse Resp BP Pulse Ox 36.6 C 64 16 117/74 96 06/01/23 06:32 06/01/23 06:32 06/01/23 06:32 06/01/23 06:32 06/01/23 06:32 Lab Results Blood Type / Crossmatch: No Data to Display Complete Blood Count: White Blood Count 9.56 10^3/uL (4.4-10.8) 05/17/23 11:33 Red Blood Count 5.33 10^6/uL (4.36-5.78) 05/17/23 11:33 Hemoglobin 16.2 g/dL (13.5-17.5) 05/17/23 11:33 Hematocrit 48.1 % (40.0-50.0) 05/17/23 11:33 Platelet Count 214 10^3/uL (130-400) 05/17/23 11:33 Complete Metabolic Panel: Sodium 142 mmol/L (136-145) 05/17/23 11:33 Potassium 4.0 mmol/L (3.5-5.1) 05/17/23 11:33 Chloride 102 mmol/L (98-107) 05/17/23 11:33 Carbon Dioxide 31.8 mmol/L (21.0-32.0) 05/17/23 11:33 BUN 12 mg/dL (7-18) 05/17/23 11:33 Creatinine 0.9 mg/dL (0.70-1.30) 05/17/23 11:33 Est GFR (CKD-EPI 2020) 93.61 (mL/min/1.73m2) 05/17/23 11:33 Calcium 9.5 mg/dL (8.5-10.1) 05/17/23 11:33 Albumin 3.9 g/dL (3.4-5.0) 05/17/23 11:33 Glucose 220 mg/dL (74-106) H 05/17/23 11:33 Hemoglobin A1c 7.9 % (<5.7) H 05/17/23 11:33 C-Reactive Protein < 0.50 mg/dL (<or=0.5) 05/17/23 11:33 Liver Function Panel: Alanine Aminotransferase (ALT/SGPT) 27 U/L (16-63) 05/17/23 11: 33 Aspartate Amino Transf (AST/SGOT) 12 U/L (15-37) L 05/17/23 11: 33 Coagulation Panel: No Data to Display Cardiac Panel: No Data to Display Arterial Blood Gas: No Data to Display Venous Blood Gas: No Data to Display Pancreas Panel: No Data to Display Thyroid Panel: No Data to Display Infectious Disease: No Data to Display Blood Cultures: No Data to Display Toxicology Panel: No Data to Display Anesthesia Assessment and Plan Anesthesia History Personal History: No History of Anesthesia Complications Family History: No Family History of Anesthesia Complications Exercise Tolerance Exercise Tolerance: Metabolic Equivalents>4 Pertinent Negatives Pertinent Negatives: No Symptoms of GERD Cardiac & Pulmonary Exam Cardiac Exam: Normal S1/S2 Heart Sounds Pulmonary Exam: Clear Bilateral Breath Sounds Implantable Cardiac Device Does patient have a Pacemaker or an ICD?: No Airway Exam Known Difficult Airway: No Mallampati Class: 2 Mouth Opening: Normal (> 3cm) Thyromental Distance: Greater than 3 cm Neck Range of Motion: Full ROM Neck Circumference: Normal Teeth Condition: Normal Dentition ASA Classification ASA Score: ASA 2 Emergency Case?: No NPO Status NPO Status: NPO Clears >2 hours, Solids >8 hours Anesthesia Plan Resuscitation Status: Full Code Anesthesia Technique: General Anesthesia Airway Planned: Endotracheal Tube Monitors Used: Standard Monitors
[2023-06-01] MEDS: ceFAZolin 2 GM/50 ML BAG IVPB (07:36)
--- NOTE | 2023-06-01 08:40 | GB_PTH ---
PATIENT: Kevon Godoy LOC: [facility] U#:[id number] AGE/SX: 68/M ROOM: RE06/01/[address]: Anayeli Gan : 1955 BED: DIS: 06/01/2023 SPEC #: [id number] RECD: 06/01/23 12:39 STATUS: JANES REQ #: [id number] ROBERTO: 06/01/23 08:[address]: Anayeli Gan DEPT: Surgical Specimen RECD BY: Winifred Michelle ENTERED: 06/01/23 12:39 SP TYPE: GB OTHR DR: Venice Melvin MD, DC Tissues: 1 - GALLBLADDER Procedures: GROSS AND MICRO LEVEL 3 Comments: [id number]
--- NOTE | 2023-06-01 10:20 | W.ANESPOSTOP ---
Postoperative Evaluation Date, Time and Location Date Performed: 06/01/23 Time Performed: 10:20 Patient Location: Day Surgery Unit Vital Signs Most Recent Imported Vital Signs: Most Recent Vital Signs Temp Pulse Resp BP Pulse Ox 36.5 C 66 16 111/60 98 06/01/23 10:01 06/01/23 10:01 06/01/23 10:01 06/01/23 10:01 06/01/23 10:01 Pain Score Most Recent Pain Score: Most Recent Pain Score Pain Level 2 06/01/23 10:01 Assessment Mental Status: Awake (Alert & Oriented to Patient Baseline) Airway and Respiratory Function: Patent airway with normal (patient baseline) respiratory exam Cardiovascular Function: Hemodynamically Stable Hydration Status: Adequately Hydrated Nausea & Vomiting: No Nausea or Vomiting Pain: Pain is tolerable per patient Peripheral Nerve Block: Patient did not receive a nerve block
== END 2023-06-01 11:00 | disposition home or self-care (01) ==
LOC: SUR 06:14
PROVIDERS: PCP Family Medicine; Visit Provider Surgery
PROC: 0FT44ZZ Resection of Gallbladder, Percutaneous Endoscopic Approach (ICD-10-PCS; CPT 47562; principal; 2023-06-01 07:30)
DX: K80.10 Calculus of gallbladder with chronic cholecystitis without obstruction (principal); E11.21 Type 2 diabetes mellitus with diabetic nephropathy; I10 Essential (primary) hypertension; I25.10 Atherosclerotic heart disease of native coronary artery without angina pectoris; F41.9 Anxiety disorder, unspecified; F17.200 Nicotine dependence, unspecified, uncomplicated
CPT/HCPCS: 47562; 88304; J0131; J0690; J1100; J1885; J2001; J2250; J2405; J2704; J3010

== ENCOUNTER → 2023-06-14 09:57 | Outpatient (BNVA) | payer OTHER, SELFPAY | PROVIDERS: PCP Family Medicine; Referring Provider Family Medicine; Visit Provider Surgery | DX: Z48.815 Encounter for surgical aftercare following surgery on the digestive system (principal); Z90.49 Acquired absence of other specified parts of digestive tract ==

== ENCOUNTER 2023-12-06 04:26 | Outpatient (CLI) | payer OTHER, SELFPAY ==
[2023-12-06 12:38] LABS: Hemoglobin A1C 7.1 % (<5.7)
== END 2023-12-06 04:27 | disposition home or self-care (01) ==
LOC: LOS 04:27
PROVIDERS: PCP Family Medicine; Visit Provider Family Medicine
DX: E11.21 Type 2 diabetes mellitus with diabetic nephropathy (principal); M54.32 Sciatica, left side
CPT/HCPCS: 36415; 83036

== ENCOUNTER 2024-05-10 02:29 | Outpatient (CLI) | payer OTHER, SELFPAY ==
[2024-05-10 08:47] LABS: ALT 26 U/L (16-63); AST 11 U/L (15-37); Albumin 4.2 g/dL (3.4-5.0); Alkaline Phosphatase 100 U/L (46-116); Anion Gap 8.2 mmol/L (3-11); BUN 13 mg/dL (7-18); Bilirubin, Total 0.38 mg/dL (0.2-1.0); CO2 32.8 mmol/L (21.0-32.0); Calcium 9.9 mg/dL (8.5-10.1); Calculated LDL 24 mg/dL (<100); Chloride 104 mmol/L (98-107); Cholesterol 84 mg/dL (<200); Estimated GFR 81.98 (mL/min/1.73m2); Glucose 162 mg/dL (74-106); HDL Cholesterol 43 mg/dL (40-60); Potassium 4.4 mmol/L (3.5-5.1); Sodium 145 mmol/L (136-145); Total Protein 7.9 g/dL (6.4-8.2); Triglyceride 88 mg/dL (<150)
[2024-05-10 09:28] LABS: COMMENT (LAB VIEW ONLY) 64.32 mg/dL; Microalb ug/mg Crea 24.9 ug/mg Cr
[2024-05-10 09:41] LABS: Hemoglobin A1C 7.6 % (<5.7)
[2024-05-11 11:17] LABS: Hepatitis C Ab w Rflx HCV PCR Negative (Negative)
== END 2024-05-10 02:30 | disposition home or self-care (01) ==
PROVIDERS: PCP Family Medicine; Visit Provider Family Medicine
DX: I10 Essential (primary) hypertension (principal); Z11.59 Encounter for screening for other viral diseases; E11.9 Type 2 diabetes mellitus without complications
CPT/HCPCS: 36415; 80053; 80061; 86803; 82043; 82570; 83036

== ENCOUNTER 2024-11-17 01:12 | Outpatient (CLI) | payer MEDICARE, SELFPAY ==
[2024-11-17 12:13] LABS: Hemoglobin A1C 7.2 % (<5.7)
[2024-11-17 12:33] LABS: ALT 29 U/L (16-63); AST 21 U/L (15-37); Albumin 4.1 g/dL (3.4-5.0); Alkaline Phosphatase 85 U/L (46-116); Anion Gap 10.4 mmol/L (3-11); BUN 11 mg/dL (7-18); Bilirubin, Total 0.7 mg/dL (0.2-1.0); CO2 28.6 mmol/L (21.0-32.0); Calcium 9.3 mg/dL (8.5-10.1); Chloride 100 mmol/L (98-107); Estimated GFR 96.40 (mL/min/1.73m2); Glucose 111 mg/dL (74-106); Potassium 4.3 mmol/L (3.5-5.1); Sodium 139 mmol/L (136-145); Total Protein 7.4 g/dL (6.4-8.2)
== END 2024-11-17 01:13 | disposition home or self-care (01) ==
LOC: LBO 01:14
PROVIDERS: PCP Family Medicine; Visit Provider Family Medicine
DX: E11.9 Type 2 diabetes mellitus without complications (principal); I10 Essential (primary) hypertension
CPT/HCPCS: 36415; 80053; 83036